=== PATIENT | female | born 1965 | race Caucasian/White ===

== ENCOUNTER 2017-09-04 19:45 | Emergency (ER) | payer BC ==
--- NOTE | 2017-09-04 19:46 | PDOC ---
Rapid Medical Evaluation Time Seen by Provider: 09/04/17 19:46 Medical Evaluation: Allergies Allergy/AdvReac Type Severity Reaction Status Date / Time No Known Drug Allergies Allergy Verified 05/12/16 01:43 SEASONAL Allergy ITCHY EYES Uncoded 05/12/16 01:43 09/04/17 19:47 51 year old female with history of hypothyroidism and sciatica who presents with chest "tingling" and pressure since morning. Symptoms started while eating breakfast. No SOB. V/s unremarkable. -EKG -CXR -Cardiac labs -To Main ED for further evaluation
[2017-09-04 19:55] VITALS: TEMP 98.4; BMI 26.6
[2017-09-04 20:09] LABS: BASO % 0.8 % (0-2.0); EOS % 2.7 % (0-4.5); HEMATOCRIT 37.3 % (32.4-45.2); HEMOGLOBIN 12.9 GM/dL (10.7-15.3); LYMPH % 33.9 % (8-40); MCH 31.1 pg (25.7-33.7); MCHC 34.6 g/dl (32.0-36.0); MEAN CELL VOLUME 89.9 fl (80-96); MEAN PLT VOLUME 7.5 fl (7.5-11.1); MONO % 6.5 % (3.8-10.2); NEUT % 56.1 % (42.8-82.8); PLATELET COUNT 248 K/MM3 (134-434); RBC 4.15 M/mm3 (3.60-5.2); RDW 12.8 % (11.6-15.6); WHITE BLOOD COUNT 5.7 K/mm3 (4.0-10.0)
--- NOTE | 2017-09-04 20:16 | PDOC ---
History of Present Illness - History of Present Illness Initial Comments: 09/04/17 20:13 51 yo F with h/o hypothyoidism, migraines who presents with chest pain. Pt. reports left sided focal inframammary chest pressure and tingling this AM with intermittent resolution of symptoms throughout the day. No identifiable triggers or alleviators. No asx. diaphoresis, jaw pain, or neck radiation. Symptom onset at breakfast but now resolved. Patient also endorses transient episode of lightheadedness while standing at grocery market, preceded by palpitations, GI upset, and fleeting vision loss. No LOC, slurred speech, convulsions, weakness, or sensory changes. Symptoms lasted seconds and resolved. Now with posterior ARCEO with post. neck radiation. Denies F/C, N/V, SOB abdominal pain, urinary complaints, constipation, diarrhea, BPR. Reports recent increase in Levothryoxine yesterday. Migraines on Topiramate, RLS ( on Pramiprexole). Denies tobacco or alcohol use. Denies h/o CAD/WA, stent placement , CABG, or abnormal stress testing. Does not follow with cardiology. Denies h/o TIA/CVA. <Scott Grady - Last Filed: 09/04/17 21:38> <Nuzhat Duong - Last Filed: 09/04/17 23:49> - General Chief Complaint: Chest Pain Stated Complaint: FATIGUE/CHEST PAIN Time Seen by Provider: 09/04/17 19:46 Past History - Past Medical History Anemia: No Asthma: Yes Cancer: No Cardiac Disorders: No CVA: No COPD: No CHF: No Dementia: No Diabetes: No GI Disorders: No Disorders: No HTN: No Hypercholesterolemia: No Liver Disease: No Seizures: No Thyroid Disease: Yes (HYPO) - Surgical History Abdominal Surgery: No Appendectomy: No Cardiac Surgery: No Cholecystectomy: No Lung Surgery: No Neurologic Surgery: No Orthopedic Surgery: No - Suicide/Smoking/Psychosocial Hx Smoking History: Never smoked Have you smoked in the past 12 months: No Information on smoking cessation initiated: No Hx Alcohol Use: No Drug/Substance Use Hx: No Substance Use Type: None Hx Substance Use Treatment: No <Scott Grady - Last Filed: 09/04/17 21:38> <Nuzhat Duong - Last Filed: 09/04/17 23:49> - Past Medical History Allergies/Adverse Reactions: Allergies Allergy/AdvReac Type Severity Reaction Status Date / Time No Known Drug Allergies Allergy Verified 09/04/17 19:50 SEASONAL Allergy ITCHY EYES Uncoded 09/04/17 19:50 Home Medications: Ambulatory Orders Biotin 5,000 mcg PO DAILY 10/14/12 Cholecalciferol (Vitamin D3) [Vitamin D3] 2,000 unit PO HS 10/14/12 Levothyroxine [Synthroid -] 88 mcg PO DAILY 10/14/12 Ibuprofen [Motrin] 600 mg PO TID PRN 09/04/17 Magnesium Oxide [Magnesium] 500 mg PO DAILY 09/04/17 Olopatadine HCl [Pataday] 2.5 ml OP DAILY 09/04/17 Salmeterol/Fluticasone [Advair 100Mcg/50Mcg -] 1 inh PO BID 09/04/17 Topiramate [Topamax] 50 mg PO BID 09/04/17 Review of Systems - Review of Systems Comments:: 09/04/17 20:13 GENERAL/CONSTITUTIONAL: No fever or chills. No weakness. HEAD, EYES, EARS, NOSE AND THROAT: No change in vision. No ear pain or discharge. No sore throat.- CARDIOVASCULAR: No chest pain or shortness of breath RESPIRATORY: No cough, wheezing, or hemoptysis. GASTROINTESTINAL: No nausea, vomiting, diarrhea or constipation. GENITOURINARY: No dysuria, frequency, or change in urination. MUSCULOSKELETAL: No joint or muscle swelling or pain. No neck or back pain. SKIN: No rash NEUROLOGIC:+ Headache. No vertigo, loss of consciousness, or change in strength/ sensation. ENDOCRINE: No increased thirst. No abnormal weight change HEMATOLOGIC/LYMPHATIC: No anemia, easy bleeding, or history of blood clots. ALLERGIC/IMMUNOLOGIC: No hives or skin allergy. <Scott Grady - Last Filed: 09/04/17 21:38> *Physical Exam - Vital Signs Last Vital Signs Temp Pulse Resp BP Pulse Ox 98.4 F 81 17 111/80 100 09/04/17 19:47 09/04/17 19:47 09/04/17 19:47 09/04/17 19:47 09/04/17 19:47 - Physical Exam Comments: 09/04/17 20:15 GENERAL: Awake, alert, and fully oriented, in no acute distress HEAD: No signs of trauma, normocephalic, atraumatic EYES: PERRLA, EOMI, sclera anicteric, conjunctiva clear ENT: Auricles normal inspection, hearing grossly normal, nares patent, oropharynx clear without exudates. Moist mucosa NECK: Normal ROM, supple, no lymphadenopathy, JVD, or masses LUNGS: No distress, speaks full sentences, clear to auscultation bilaterally HEART: Regular rate and rhythm, normal S1 and S2, no murmurs, rubs or gallops, peripheral pulses normal and equal bilaterally. ABDOMEN: Soft, nontender, normoactive bowel sounds. No guarding, no rebound. No masses. Neg suprapubic ttp. Neg CVA ttp. EXTREMITIES : Normal inspection, Normal range of motion, no edema. No clubbing or cyanosis. NEUROLOGICAL: Cranial nerves II through XII grossly intact. Normal speech, normal gait, no focal sensorimotor deficits. Nml LANE. Absent dysmetria on FTN. SKIN: Warm, Dry, normal turgor, no rashes or lesions noted <Scott Grady - Last Filed: 09/04/17 21:38> - Vital Signs Last Vital Signs Temp Pulse Resp BP Pulse Ox 98.4 F 81 17 111/80 100 09/04/17 19:47 09/04/17 19:47 09/04/17 19:47 09/04/17 19:47 09/04/17 19:47 <Nuzhat Duong - Last Filed: 09/04/17 23:49> ED Treatment Course - LABORATORY CBC & Chemistry Diagram: 09/04/17 20:01 09/04/17 20:01 <Scott Grady - Last Filed: 09/04/17 21:38> - LABORATORY CBC & Chemistry Diagram: 09/04/17 20:01 09/04/17 20:01 - ADDITIONAL ORDERS Additional order review: Laboratory Results 09/04/17 09/04/17 09/04/17 23:00 20:09 20:01 PT with INR INR Sodium 139 Potassium 3.6 Chloride 106 Carbon Dioxide 23 Anion Gap 10 BUN 12 Creatinine 0.9 Creat Clearance w eGFR > 60 Random Glucose 118 H Calcium 8.4 L Total Bilirubin 0.3 AST 19 ALT 20 Alkaline Phosphatase 100 Creatine Kinase 70 84 Troponin I < 0.02 < 0.02 Total Protein 7.7 Albumin 3.9 Urine HCG, Qual Negative 09/04/17 20:01 PT with INR 11.70 INR 1.04 Sodium Potassium Chloride Carbon Dioxide Anion Gap BUN Creatinine Creat Clearance w eGFR Random Glucose Calcium Total Bilirubin AST ALT Alkaline Phosphatase Creatine Kinase Troponin I Total Protein Albumin Urine HCG, Qual 09/04/17 20:01 RBC 4.15 MCV 89.9 MCHC 34.6 RDW 12.8 MPV 7.5 Neutrophils % 56.1 D Lymphocytes % 33.9 D Monocytes % 6.5 Eosinophils % 2.7 Basophils % 0.8 - Medications Given in the ED: ED Medications Discontinued Medications Generic Name Dose Route Start Last Admin Trade Name Freq PRN Reason Stop Dose Admin Al Hydroxide/Mg Hydroxide 30 ml 09/04/17 21:38 09/04/17 21:49 Mylanta Oral Suspension - PO 09/04/17 21:39 30 ml ONCE ONE Administration Diphenhydramine HCl 25 mg 09/04/17 20:57 09/04/17 21:16 Benadryl Oral Solution - PO 09/04/17 20:58 25 mg ONCE ONE Administration Ibuprofen 600 mg 09/04/17 21:38 09/04/17 21:49 Motrin - PO 09/04/17 21:39 600 mg ONCE ONE Administration Meclizine HCl 25 mg 09/04/17 20:56 09/04/17 21:16 Antivert - PO 09/04/17 20:57 25 mg ONCE ONE Administration Prochlorperazine Maleate 5 mg 09/04/17 20:56 09/04/17 21:16 Compazine - PO 09/04/17 20:57 5 mg ONCE ONE Administration <Nuzhat Duong - Last Filed: 09/04/17 23:49> Medical Decision Making - Medical Decision Making 09/04/17 20:44 51 yo F with h/o hypothyoidism, migraines who presents left sided focal inframammary chest pressure and tingling this AM with intermittent resolution of symptoms throughout the day. No identifiable triggers or alleviators. Endorses transient episode of lightheadedness while standing at grocery market, preceded by palpitations, GI upset, and fleeting vision loss. No LOC, slurred speech, convulsions, weakness, or sensory changes. Symptoms lasted seconds and resolved. Now with posterior ARCEO with post. neck radiation. Denies F/C, N/V, SOB abdominal pain, urinary complaints, constipation, diarrhea, BPR. Denies h/o CAD/ [place], stent placement, CABG, or abnormal stress testing. Does not follow with cardiology. Denies h/o TIA/CVA. HDS. Physical exam unremarkable. ACS/WA r/o. Will also evaluate pt. for presyncope causes such as cardiovascular mediated dysarythmias vs underlying heart dz. Will also consider neurally mediated vs. orthostatic mediated cause. Although no triggers identified prodromal autonomic symptoms prior to lightheadedness suggest vasovagal syncope. NIHSS 0. Low suspicion of CVA/TIA. Pt. with absent neuro deficits. Pt. currently asymptomatic. CT head low yield. PMD Robert Key. DDx: Vasovagal syncope, gastritis, tension type ARCEO, ACS/WA, TIA/CVA ED Course: CBC, CMP, Cardiac Pr, HCG EKG, CXR UA 09/04/17 20:58 Meclizine, diphenhydrazine, Prochlorperazine 09/04/17 21:14 EKG: NSR with absent EUSEBIO, STD, or TWI. Normal axis and interval duration. 09/04/17 21:15 CBC, CMP: Unremarkable BHCG: Neg Trop: Neg Patient ARCEO slightly improved. No chest pain or other complaints. Discussed the need to f/u with cardiology and PMD. Initial trop neg. Will repeat trop at [id number]. If stable. Plan for discharge. 09/04/17 21:38 600 mg Motrin, Maloox <Scott Grady - Last Filed: 09/04/17 21:38> *DC/Admit/Observation/Transfer - Attestations Physician Attestion: 09/04/17 20:15 I attest to the information provided in this note. <Scott Grady - Last Filed: 09/04/17 21:38> <Nuzhat Duong - Last Filed: 09/04/17 23:49> Diagnosis at time of Disposition: Atypical chest pain, Tension headache - Discharge Dispostion Disposition: HOME Condition at time of disposition: Stable - Referrals Referrals: Robert Key MD [Primary Care Provider] - Chris Brennan MD [Staff Physician] - - Patient Instructions Printed Discharge Instructions: DI for Atypical Chest Pain Additional Instructions: Please return to the emergency department with any new or worsening symptoms or concerns. Please follow up with your primary care physician within 72 hours. Please follow up with cardiology within one week. - Post Discharge Activity
[2017-09-04 20:22] LABS: INR 1.04 (0.82-1.09); PROTHROMBIN TIME (PATIENT) 11.7 SEC (9.98-11.88)
[2017-09-04 20:49] LABS: ALBUMIN 3.9 g/dl (3.4-5.0); ANION GAP 10 (8-16); BILIRUBIN,TOTAL 0.3 mg/dL (0.2-1.0); BLOOD UREA NITROGEN 12 mg/dL (7-18); CALCIUM 8.4 mg/dL (8.5-10.1); CHLORIDE 106 mmol/L (98-107); CO2 23 mmol/L (21-32); CREATININE 0.9 mg/dL (0.55-1.02); GLUCOSE,RANDOM 118 mg/dL (74-106); SGPT/ALT 20 U/L (12-78); SODIUM 139 mmol/L (136-145); TOT PROT 7.7 g/dl (6.4-8.2)
[2017-09-04 20:52] LABS: ALK PHOS 100 U/L (45-117); POTASSIUM 3.6 mmol/L (3.5-5.1); SGOT/AST 19 U/L (15-37)
[2017-09-04] MEDS ORDERED: PROCHLORPERAZINE MALEATE 5 MG TABLET PO ONE (20:56)
[2017-09-04] MEDS ORDERED: MECLIZINE HCL 25 MG TABLET (FP) PO ONE (20:56)
[2017-09-04] MEDS ORDERED: diphenhydrAMINE HCL 12.5 MG/5 ML UNIT-DOSE CUPS PO ONE (20:57)
[2017-09-04] MEDS ORDERED: MECLIZINE HCL 25 MG TABLET (FP) ONE (21:10)
[2017-09-04] MEDS ORDERED: PROCHLORPERAZINE MALEATE 5 MG TABLET ONE (21:10)
[2017-09-04] MEDS ORDERED: diphenhydrAMINE HCL 25 MG CAPSULE (FP) PO ONE (21:10)
--- NOTE | 2017-09-04 21:13 | PDOC ---
Attending Attestation - Resident Resident Name: Shakir Gradyson - ED Attending Attestation I have performed the following: I have examined & evaluated the patient, The case was reviewed & discussed with the resident, I agree w/resident's findings & plan, Exceptions are as noted - HPI HPI: 09/04/17 21:11 51 yo female with history migraines had fleeting chest pain and epigastric discomfort -the chest pain was bout 15 hours ago - Physicial Exam PE: 09/04/17 21:39 Well-nourished, well-developed 51-year-old female in no acute distress. Head normocephalic/atraumatic. Eyes pupils equal, reactive to light and accommodation, extraocular muscles are intact.,no nystasgmus Neck no cervical vertebral tenderness, supple Neck no JVD, no bruits. Lungs clear to auscultation bilaterally CVS regular rate and rhythm, no gallops, murmurs Abdomen soft, nontender, nondistended. Extremities no tenderness, no erythema, no pitting edema Neuro alert and oriented 3. Motor strength 5 over 5 bilaterally, ambulatory Skin no abscess is, no cellulitis. Psych appropriate - Medical Decision Making 09/04/17 23:48 2 sets of negative troponins and pt discharged home
[2017-09-04] MEDS ORDERED: MAG HYDROX/AL HYDROX/SIMETH 30 ML UNIT-DOSE CUP PO ONE (21:38)
[2017-09-04] MEDS ORDERED: IBUPROFEN 600 MG TABLET (FP) PO ONE ×2 (21:38→21:43)
[2017-09-04] MEDS ORDERED: MAG HYDROX/AL HYDROX/SIMETH 30 ML UNIT-DOSE CUP ONE (21:44)
[2017-09-04 23:59] VITALS: BP 107/74; PULSE 64
--- NOTE | 2017-09-05 12:36 | EKG ---
Test Reason : Blood Pressure : / mmHG Vent. Rate : 072 BPM Atrial Rate : 072 BPM P-R Int : 132 ms QRS Dur : 090 ms QT Int : 384 ms P-R-T Axes : 027 071 056 degrees QTc Int : 420 ms NORMAL SINUS RHYTHM NORMAL ECG WHEN COMPARED WITH ECG OF 01-FEB-2015 00:45, NO SIGNIFICANT CHANGE WAS FOUND Confirmed by JUNE THOMAS MD ([id number]) on 09/05/2017 12:36:24 PM Referred By: Confirmed By:JUNE THOMAS MD
== END 2017-09-04 23:58 | disposition home or self-care (01) ==
LOC: JER 19:45
DX: R07.89 Other chest pain (principal); G44.209 Tension-type headache, unspecified, not intractable; E03.9 Hypothyroidism, unspecified
CPT/HCPCS: 36415; 71046-TC-FY; 80053; 82550; 84484; 84703; 85025; 85610; 93005; 93010; 99283-25

== ENCOUNTER 2018-06-28 07:55 | Day surgery (SDC) | payer BC ==
[2018-06-27 15:30] VITALS: BMI 28.0
[2018-06-28 09:37] VITALS: TEMP 98
[2018-06-28] MEDS ORDERED: ACETAMINOPHEN 325 MG TABLET (FP) PO ONE (10:05)
[2018-06-28] MEDS ORDERED: ACETAMINOPHEN 325 MG TABLET (FP) ONE (10:07)
[2018-06-28 10:45] VITALS: BP 111/81; PULSE 65
--- NOTE | 2018-07-01 10:17 | PATH ---
Surgical Pathology Report Patient Name: CATALINA MITCHELL [facility]. Rec. #: [id number] /Age/Gender: 1965 (Age: 52) / F Account: [id number] Location: U-ENDOSCOPY Taken: 06/28/2018 Received: 06/28/2018 Reported: 07/01/2018 Physicians: Aliza Gonzalez M.D. Specimen(s) Received BX GASTRIC ANTRUM Clinical History Abdominal pain, history of ulcer Postoperative diagnosis: Gastric antrum ulcer Final Diagnosis STOMACH, ANTRUM, BIOPSY; GASTRIC ANTRAL MUCOSA WITH MILD CHRONIC GASTRITIS AND FOCAL SURFACE EROSION. IMMUNOHISTOCHEMICAL STAIN FOR H. PYLORI IS NEGATIVE. Electronically Signed Catalina Cornell M.D. Gross Description Received in formalin, labeled "biopsy gastric antrum" are 4 hand, irregular portions of soft tissue ranging from 0.2-0.5 cm. in greatest dimension. The specimens are submitted in toto in one cassette. /06/28/201806/28/2018
== END 2018-06-28 10:45 | disposition home or self-care (01) ==
LOC: JASU-ENDO 07:55
PROVIDERS: ATTEND Internal Medicine Gastroenterology
PROC: 0DB68ZX Excision of Stomach, Via Natural or Artificial Opening Endoscopic, Diagnostic (ICD-10-PCS; principal; 2018-06-28 08:45)
DX: K25.9 Gastric ulcer, unspecified as acute or chronic, without hemorrhage or perforation (principal)
CPT/HCPCS: 88305-TC; 88342-TC